=== PATIENT | male | born 1990 | race Caucasian/White ===

== ENCOUNTER 2024-01-29 10:22 | Emergency (ER) | payer OTHER ==
[~2024-01-29] VITALS: Ht 180.3 cm; Wt 91.0 kg
[2024-01-29] MEDS ORDERED: HYZAAR 100-251 EACH PO (11:34)
[2024-01-29] MEDS ORDERED: JARDIANCE10 MG PO ×2 (11:35→11:36)
[2024-01-29] MEDS ORDERED: WELLBUTRIN XL150 MG PO (11:36)
[2024-01-29] MEDS ORDERED: SPIRIVA RESPIMAT4 GM INH (11:37)
[2024-01-29] MEDS ORDERED: WIXELA 100-501 EACH INH (11:37)
[2024-01-29 13:04] VITALS: BP 136/78
== END 2024-01-29 13:06 | disposition home or self-care (01) ==
LOC: ED 10:22
DX: L72.8 Other follicular cysts of the skin and subcutaneous tissue (principal); Z79.899 Other long term (current) drug therapy
CPT/HCPCS: 99282

== ENCOUNTER → 2025-01-29 | Day surgery (SDC) | payer OTHER ==
[~2025-01-29] MED LIST: BENADRYL25 MG PO; FLOMAX0.4 MG PO; HYZAAR 100-251 EACH PO; JARDIANCE10 MG PO; LIDOCAINE 2% VISCOUS 11 ML SYR ONE; SPIRIVA RESPIMAT4 GM INH; WELLBUTRIN XL150 MG PO; WIXELA 100-501 EACH INH; diazePAM 2 MG TAB PO ONE
== END ==
LOC: OPS 08:30 → DS 09:00 → OPS 09:00
PROVIDERS: ATTEND Urology
PROC: 0TJB8ZZ Inspection of Bladder, Via Natural or Artificial Opening Endoscopic (ICD-10-PCS; principal; 2025-01-29)
DX: N31.9 Neuromuscular dysfunction of bladder, unspecified (principal); N40.1 Benign prostatic hyperplasia with lower urinary tract symptoms; R39.14 Feeling of incomplete bladder emptying; N18.1 Chronic kidney disease, stage 1; F41.1 Generalized anxiety disorder; F33.1 Major depressive disorder, recurrent, moderate; E78.5 Hyperlipidemia, unspecified; Z79.899 Other long term (current) drug therapy; Z88.8 Allergy status to other drugs, medicaments and biological substances
CPT/HCPCS: C1747; J3490